=== PATIENT | female | born 1990 | race Caucasian/White ===

== ENCOUNTER 2019-03-01 12:31 | Inpatient (IN) | payer BC ==
[2019-03-01 13:14] VITALS: BMI 29.2
[2019-03-01] MEDS ORDERED: Butorphanol Tartrate 1 MG/ML VIAL SLOW IVP PRN (13:36)
[2019-03-01] MEDS ORDERED: hydrALAZINE 20 MG/ML VIAL SLOW IVP PRN (13:36)
[2019-03-01] MEDS ORDERED: NS / Oxytocin 40 units/1000ml 1,000 ML IV PRN (13:36)
[2019-03-01] MEDS ORDERED: Zolpidem Tartrate 5 MG TAB PO PRN (13:36)
[2019-03-01] MEDS ORDERED: Meperidine HCl/PF 25 MG/ML VIAL IM/IV PRN (13:36)
[2019-03-01] MEDS ORDERED: Acetaminophen 500 MG TAB PO PRN (13:36)
[2019-03-01] MEDS ORDERED: Lidocaine 1% (PF) 30 ML VIAL SC PRN (13:36)
[2019-03-01] MEDS ORDERED: Acetaminophen/Codeine 30-300mg Tablet PO PRN ×2 (13:36)
[2019-03-01] MEDS ORDERED: Ibuprofen 800 MG TAB PO PRN (13:36)
[2019-03-01] MEDS ORDERED: Promethazine HCl 25 MG/ML VIAL IM PRN ×2 (13:36→17:40)
[2019-03-01] MEDS ORDERED: Ondansetron PF 4 MG/2 ML Vial IVP PRN ×2 (13:36→17:40)
[2019-03-01] MEDS ORDERED: NS w/ Oxytocin 10 units 500 ML IV SCH (13:45)
[2019-03-01] MEDS ORDERED: Lactated Ringer's 1,000 ML IV SCH (13:45)
--- NOTE | 2019-03-01 14:04 | PDOC.LDHP ---
Labor and Delivery H&P Chief complaint: contractions, loss of fluid HPI: 28 yo WF here c/o ROM at 1120 AM, now with UCs. Current gestational age (weeks): 39 Due date: 03/08/19 Dating criteria: last menstrual period Grav: 1 Para: 0 OB History Details: PNC with Dr. Cuenca w/o complications. Current complications: none Abnormal US findings: No Current medications: pre- vitamins Previous surgical history: none Allergies/Adverse Reactions: Allergies Allergy/AdvReac Type Severity Reaction Status Date / Time Cephalosporins Allergy Hives Verified 03/01/19 13:04 Penicillins Allergy Hives Verified 03/01/19 13:04 Social history: none - Physical Exam Vital signs reviewed and normal: yes General: NAD, resting Heart: RRR Lungs: CTAB Abdomen: gravid Extremeties: trace edema FHT: category 1 [place] contractions every: irregular - Vaginal Exam cm dilated: 2 Effacement: 75% Station: 0 - OB Labs GBS: positive - Assessment L&D Assessment: term rupture in membranes - Plan Plan: admit to L&D, labor augmentation if indicated, GBS antibiotic prophylaxis , informed consent obtained (Dr. Cuenca aware)
[2019-03-01] MEDS: Lactated Ringer's 1,000 ML IV SCH ×3 (14:13→19:30)
[2019-03-01] MEDS: Vancomycin HCl 1 GM in Premix Bag 1 BAG IVPB SCH (14:14)
[2019-03-01 14:30] LABS: Hemoglobin 11.9 g/dL (12.0-16.0); Mean Corpuscular HGB CONC 34.9 g/dL (32.0-36.0); Mean Corpuscular Hemoglobin 34.7 pg (27.0-31.0); Mean Corpuscular Volume 99.4 fL (78.0-98.0); Platelet Count 195 thou/uL (130-400); RBC Distribution Width 11.1 % (11.5-14.5); Red Blood Cell (RBC) Count 3.44 mill/uL (4.20-5.40); White Blood Cell (WBC) Count 8.1 thou/uL (4.8-10.8)
[2019-03-01] MEDS ORDERED: Bupivacaine/Epinephrine 0.25% 30 ML VIAL ONE (15:00)
[2019-03-01 15:09] LABS: Syphilis Antibody Nonreactive (Nonreactive); Syphilis Antibody Index 0.06 S/CO (<1.00 Non-Reactive)
[2019-03-01 15:10] LABS: HBSAg Index 0.24 S/CO (0-0.99); Hep B Surf Ag Non-Reactive S/CO (NonReactive)
[2019-03-01] MEDS ORDERED: Fentanyl 4 mcg/Bup 0.1% Cadd 100 ML ONE (17:04)
[2019-03-01] MEDS ORDERED: ePHEDrine/0.9% NaCl/PF SYRINGE 50 mg/10 ml SLOW IVP PRN (17:40)
[2019-03-01] MEDS ORDERED: Lactated Ringer's 500 ML IV PRN (17:40)
[2019-03-01] MEDS ORDERED: Acetaminophen 325 MG TAB PO PRN (17:40)
[2019-03-01] MEDS ORDERED: Naloxone HCl 0.4 mg/ml Vial IVP PRN ×2 (17:40)
[2019-03-01] MEDS ORDERED: diphenhydrAMINE 50 MG/ML VIAL IVP PRN (17:40)
[2019-03-01] MEDS ORDERED: Fentanyl 4 mcg/Bupivacaine 0.1% Cassette 100 ML EPIDURAL SCH (17:45)
[2019-03-01] MEDS ORDERED: Communication Order-Pharmacy FS SCH (17:45)
--- NOTE | 2019-03-01 19:29 | PDOC.EVN ---
Event Note - Event Note Event Note: Comfortable with epidural, episode of hypotension after placement now resolved post ephedrine x1. Last exam 4 cm per Labor RN. Pit at 6 mu/min. 2nd dose of vancomycin due at 2AM. Continue induction.
[2019-03-02] MEDS: NS / Oxytocin 40 units/1000ml 1,000 ML IV SCH ×2 (00:13→02:11)
--- NOTE | 2019-03-02 00:36 | PDOC.OPDEL ---
OB Operative/Delivery Note Delivery Dr/Surgeon: Joellen Pre-Delivery Diagnosis: active labor Procedure/Post Delivery Dx: operative vaginal delivery Weeks gestation: 40 Anesthesia: epidural - Findings A Sex: male - 1 min: 8 - 5 min: 9 - Additional Findings/Plan Placenta delivered: spontaneous Repaired Obstetrical Laceration: 2nd degree (bilateral vaginal sulci with 2nd degree perineal...) Estimated blood loss: 690ml qbl.. Post delivery plan: routine recovery
[2019-03-02] MEDS ORDERED: Misoprostol 200 MCG TAB VAG PRN (00:38)
[2019-03-02] MEDS ORDERED: Bisacodyl 10 MG SUPP PR PRN (00:38)
[2019-03-02] MEDS ORDERED: traMADol HCl 50 MG TAB PO PRN (00:38)
[2019-03-02] MEDS ORDERED: Benzocaine-Menthol 82.5 ML CAN TOP PRN (00:38)
[2019-03-02] MEDS ORDERED: hydrALAZINE 20 MG/ML VIAL SLOW IVP PRN (00:38)
[2019-03-02] MEDS ORDERED: Milk Of Magnesia 30 ML UDCUP PO PRN (00:38)
[2019-03-02] MEDS ORDERED: Adacel (T-DAP) 0.5 ML SYRINGE IM ONE (00:38)
[2019-03-02] MEDS ORDERED: Lanolin Ointment 7 GM TUBE TOP PRN (00:38)
[2019-03-02] MEDS: Ibuprofen 800 MG TAB PO SCH ×3 (03:55→21:40)
[2019-03-02 06:12] LABS: Hemoglobin 9.4 g/dL (12.0-16.0); Mean Corpuscular HGB CONC 34.3 g/dL (32.0-36.0); Mean Corpuscular Hemoglobin 34.4 pg (27.0-31.0); Mean Platelet Volume 9.8 fL (7.4-10.4); Platelet Count 162 thou/uL (130-400); RBC Distribution Width 11.2 % (11.5-14.5); Red Blood Cell (RBC) Count 2.72 mill/uL (4.20-5.40); White Blood Cell (WBC) Count 14.8 thou/uL (4.8-10.8)
[2019-03-02] MEDS: Vancomycin HCl 1 GM in Premix Bag 1 BAG IVPB SCH (08:33)
[2019-03-02] MEDS: Ferrous Sulfate 325 MG TAB PO SCH ×2 (08:34→16:45)
[2019-03-02] MEDS: Prenatal Vitamin 1 TAB PO SCH (08:34)
[2019-03-02] MEDS: Docusate Calcium (SURFAK) 240 MG CAP PO SCH ×2 (08:35→21:41)
--- NOTE | 2019-03-02 14:40 | PDOC.PP ---
Post Progress Note Post Day #: 0-1 PO intake tolerated: yes Flatus: yes Ambulation: yes Vital Signs (12 hours) Temp Pulse Resp BP Pulse Ox 03/02/19 08:05 98.7 F 72 20 118/71 98 03/02/19 05:25 98.3 F 92 18 120/69 03/02/19 03:50 98.7 F 84 18 114/67 03/02/19 02:49 98.5 F 94 20 127/75 99 Weight Weight 160 lb - Physical Examination Abdominal: lochia, no distention, appropriately TTP Result Diagrams: 03/02/19 05:54 Additional Labs: Post Labs Blood Type O NEGATIVE 03/01/19 15:00 Hep Bs Antigen Non-Reactive S/CO (NonReactive) 03/01/19 13:57 - Assessment/Plan Post day 0-1 from ve outlet assited vaginal delivery for maternal exhaustion in second stage. QBL of 690 ml for laceration...HGB 9.4... Asymptomatic blood loss anemia. Routine care. GBS positive-treated with vancomycin --pcn and cephalosporin allergy..
[2019-03-03] MEDS: Ibuprofen 800 MG TAB PO SCH ×3 (05:32→21:16)
[2019-03-03] MEDS: Ferrous Sulfate 325 MG TAB PO SCH ×2 (07:58→17:06)
[2019-03-03] MEDS: Prenatal Vitamin 1 TAB PO SCH (07:59)
[2019-03-03] MEDS: Docusate Calcium (SURFAK) 240 MG CAP PO SCH ×2 (07:59→21:16)
[2019-03-04 00:13] VITALS: TEMP 98.4
[2019-03-04] MEDS: Ibuprofen 800 MG TAB PO SCH (05:19)
--- NOTE | 2019-03-04 06:01 | PDOC.PP ---
Post Progress Note Post Day #: PPD2 Subjective: No c/o, ready for home. PO intake tolerated: yes Flatus: yes Ambulation: yes Vital Signs (12 hours) Temp Pulse Resp BP 03/04/19 00:12 98.4 F 85 18 111/61 03/03/19 19:40 98.6 F 83 18 122/73 Weight Weight 72.575 kg - Physical Examination General: NAD Respiratory: non-labored breathing Abdominal: no distention Psychiatric: normal affect Result Diagrams: 03/02/19 05:54 Additional Labs: Post Labs Blood Type O NEGATIVE 03/01/19 15:00 Hep Bs Antigen Non-Reactive S/CO (NonReactive) 03/01/19 13:57 - Assessment/Plan Doing well s/p . DC home with precautions. RTC [address] Cuenca
[2019-03-04] MEDS: Ferrous Sulfate 325 MG TAB PO SCH (07:11)
[2019-03-04] MEDS: Docusate Calcium (SURFAK) 240 MG CAP PO SCH (07:11)
[2019-03-04] MEDS: Prenatal Vitamin 1 TAB PO SCH (07:11)
[2019-03-04 09:53] VITALS: BP 113/69
== END 2019-03-04 14:00 | disposition home or self-care (01) | DRG 807 ==
LOC: L&D/OP 12:31 → L&D 14:30 → 3SW 03-02 02:55
PROVIDERS: ADMIT Obstetrics & Gynecology; ATTEND Obstetrics & Gynecology
PROC: 10E0XZZ Delivery of Products of Conception, External Approach (ICD-10-PCS; principal; 2019-03-02)
PROC: 0KQM0ZZ Repair Perineum Muscle, Open Approach (ICD-10-PCS; 2019-03-02)
DX: O42.92 Full-term premature rupture of membranes, unspecified as to length of time between rupture and onset of labor (principal); Z37.0 Single live birth; O99.824 Streptococcus B carrier state complicating childbirth; O75.81 Maternal exhaustion complicating labor and delivery; O70.1 Second degree perineal laceration during delivery; Z3A.39 39 weeks gestation of pregnancy; Z88.0 Allergy status to penicillin; Z88.1 Allergy status to other antibiotic agents
CPT/HCPCS: 36415; 51702; 85027; 86780; 86850; 86870; 86900; 86901; 87340; 99285; J2001; J2405; J2590; J3370